=== PATIENT | male | born 1960 | race Caucasian/White ===

== ENCOUNTER 2024-03-23 05:29 | Observation (INO) ==
[~2024-03-23 05:29] MED LIST: HYDROmorphone 1 MG/1 ML SYRINGE IV PRN; Naloxone 0.4 mg VIAL 0.4 mg/ml 1 ml VIAL IV PRN; Ondansetron 4 mg VIAL 2 MG/ML 2 ml VIAL IV PRN; fentaNYL 100 mcg/2 ml 50 MCG/ML VIAL IV PRN
[2024-03-23 07:15] LABS: Rapid COVID-19 Molecular Undetected (Undetected)
[2024-03-23] MEDS ORDERED: Chlorhexidine MOUTHWASH 0.12% 15 ML UDC ONE (07:56)
[2024-03-23] MEDS ORDERED: ceFAZolin 2 GM PREMIX 2 GM/50 ML BAG ONE (08:34)
[2024-03-23] MEDS: Buffered Lidocaine 1% SYRIN 1 ml INTRADERM ONE (09:04)
[2024-03-23] MEDS: Scopolamine 1 mg/72hr PATCH TRANSDERM ONE (09:04)
[2024-03-23] MEDS: Lactated Ringers 1000 ml BAG 1,000 ML IV SCH ×2 (09:04→16:07)
[2024-03-23] MEDS ORDERED: Ondansetron 4 mg VIAL 2 MG/ML 2 ml VIAL ONE (10:13)
[2024-03-23] MEDS ORDERED: Dexamethasone IV 4 MG/ML VIAL 1 ml VIAL ONE (10:13)
[2024-03-23] MEDS ORDERED: Propofol 10 MG/ML 20 ML BTL ONE (10:52)
[2024-03-23] MEDS ORDERED: Lidocaine 2% PF 5 ML VIAL ONE (10:56)
[2024-03-23] MEDS ORDERED: Lidocaine 1% w EPI 1:100,000 MDV 50 ML VIAL ONE (11:43)
[2024-03-23] MEDS ORDERED: ceFAZolin VIAL VIAL ONE (11:43)
[2024-03-23] MEDS ORDERED: fentaNYL 100 mcg/2 ml 50 MCG/ML VIAL ONE (11:50)
[2024-03-23] MEDS ORDERED: Midazolam 2 mg/2 ml VIAL 1 mg/ml 2 ml VIAL (2 mg) ONE (11:50)
[2024-03-23] MEDS ORDERED: Rocuronium 50 mg VIAL 10 mg/ml 5 ml VIAL (50 mg) ONE ×3 (12:03→13:05)
[2024-03-23] MEDS ORDERED: Magnesium Hydroxide LIQ 30 ML UDC PO PRN (13:56)
[2024-03-23] MEDS ORDERED: Ondansetron 4 mg VIAL 2 MG/ML 2 ml VIAL IV PRN (13:56)
[2024-03-23] MEDS ORDERED: Morphine 2 MG/ML SYRINGE IV PRN (13:56)
[2024-03-23] MEDS ORDERED: Phenol 1.4% Throat Spray BTL MT PRN (13:56)
[2024-03-23] MEDS ORDERED: Dextran 70/Hypromellose Tears Eye Drops 15 ml BTL (for Artificials Tears) BOTH EYES PRN (13:56)
[2024-03-23] MEDS ORDERED: Albuterol HFA INHALER 8 gm MDI INH PRN (13:58)
[2024-03-23] MEDS: Acetaminophen IV 1 GM/100ML 1,000 MG/100 ML BAG IV ONE (15:13)
[2024-03-23] MEDS: Benzocaine/Menthol LOZ MT PRN (20:11)
[2024-03-23] MEDS: Nicotine Lozenge mini 2 MG LOZNG.MINI MT PRN (20:12)
[2024-03-23] MEDS: Calcium Carb (TUMS) 500 mg CHEW TAB PO PRN (20:13)
[2024-03-23] MEDS: Mometasone 220 MCG MDI INH SCH (22:36)
[2024-03-24] MEDS: Senna TAB 8.6 mg TAB PO PRN (00:23)
== END 2024-03-25 11:35 | disposition home or self-care (01) ==
LOC: OR 05:29 → SSU 05:29
PROVIDERS: ADMIT Neurological Surgery; ATTEND Neurological Surgery